=== PATIENT | female | born 1945 | race Caucasian/White ===

== ENCOUNTER 2016-12-01 21:38 | Emergency (ER) | payer MEDICARE, OTHER ==
--- NOTE | 2016-12-05 13:04 | ER ---
ADMIT: 12/01/2016 RM/LOC: ER [facility] MR#: [id number] [address] [id number] [address] [place] [address] Emergency Room Report SEX: F AGE: 71 : 1945 DATE: 12/01/2016 CHIEF COMPLAINT: Left earache. HISTORY OF PRESENT ILLNESS: A 71-year-old female, who presents with 7 days' duration of sinus pain. Today, she had increasingly worse left ear pain. Describes it as throbbing. States she has had some drainage in the ear today. Denies any fevers, chills, hearing loss, trauma to the ear, headache. She has been on azithromycin for this with little improvement. COURSE IN THE EMERGENCY ROOM: GENERAL: The patient was seen and examined. Afebrile, nontoxic. No acute distress. HEENT: She has no pain with movement of the auricle. No external canal erythema. No obvious blood or discharge in the canal. She does have some cerumen. TMs have some left tympanic membrane erythema with some fluid. No sign of perforation. Pharynx is normal, nonerythematous. No exudate. No pain with percussion of the sinuses and atraumatic. Eyes are equal and reactive. LUNGS: Clear. IMPRESSION: Acute otitis media on the left. DISPOSITION: The patient will start on Levaquin 500 mg p.o. daily x7 days. The first dose was given in the department tonight. DISPOSITION: The patient discharged. A script for Levaquin 500 mg p.o. daily x7 days. Increase fluids as tolerated. Follow up with PCP if not improving. Questions sought and answered to the best of my ability and to the patient's satisfaction. Discharged in stable condition. CUBA Juarez / Gaston Fragoso MD / dominik JOB #: [id number] CC: Gaston Fragoso MD, Attending Physician Karen Barnett MD, Family Physician
== END 2016-12-01 23:15 | disposition home or self-care (01) ==
LOC: ER 21:38
DX: H66.92 Otitis media, unspecified, left ear (principal); F17.200 Nicotine dependence, unspecified, uncomplicated; I10 Essential (primary) hypertension; Z95.5 Presence of coronary angioplasty implant and graft; Z88.1 Allergy status to other antibiotic agents